=== PATIENT | female | born 1955 | race African-American/Black ===

== ENCOUNTER 2022-10-17 17:55 | Emergency (ER) | payer MEDICARE, OTHER, SELFPAY ==
[2022-10-17 18:00] VITALS: BP 111/69; PULSE 76; RESP 18; TEMP 36.7; O2SAT 98; BMI 22.8
--- NOTE | 2022-10-17 18:13 | EXP.UTC ---
Discharge Plan Disposition Patient Disposition: Home, Self-Care Condition: Good Prescriptions Prescriptions: New methylprednisolone [Medrol (Santosh)] 4 mg tablets,dose pack See Rx Instructions .Route .COMPLEX 6 Days Qty: 21 0RF Rx Instructions: taper pack; No Action potassium chloride 20 MEQ tablet extended release 20 meq PO BID 5 Days Qty: 10 0RF Referrals Follow up/Referrals: Provider,Referral, MD [Primary Care Provider] - See instructions Activity Restrictions/Add. Instructions Additional Instructions/Restrictions: Make sure to take your Potassium Start oral steriods tomorrow Oatmeal baths may help with itching and to dry your rash Over the counter Benadryl and Calamine lotion may help to dry the rash Clinical Impressions Clinical Impression: Poison alexia dermatitis Instructions Patient Instructions: Summertime Rashes: Poison Alexia, [place], and [place], DI for Poison Alexia Allergy Discharge ED Provider: Tana Lilly [facility] [place] General Stated complaint: poision alexia Mode of Arrival: Ambulatory Source of Information: Patient Limitations: No Limitations Time Seen by Provider: 10/17/22 18:13 Description of Symptoms (Recalled from Triage Doc. by RN): PATIENT C/O RASH SINCE YESTERDAY HEENT Symptoms (Recalled from RN notes): No Resp Symptoms (Recalled from RN notes): No Skin Symptoms (Recalled from RN notes): Yes MS Symptoms (Recalled from RN notes): No Functional Status (Recalled from RN notes): WNL History of Present Illness Provider Complaint: Patient states that she is highly allergic to poison alexia and she has been doing yard work and weed eating and must have got in it States that she noticed yesterday she was breaking out and itching all over and today it is worse States that it is all over her neck, chest, arms, shoulders and starting on her face so she came in to get checked Related Data Previous Rx's Medication Instructions Recorded potassium chloride 20 mEq 20 meq PO BID 5 days #10 tabs 01/30/19 tablet,extended release methylprednisolone 4 mg tablets in See Rx Instructions .Route 10/17/22 a dose pack (Medrol (Santosh)) .COMPLEX 6 days #21 tabs Allergies Allergy/AdvReac Type Severity Reaction Status Date / Time Penicillins Allergy Verified 01/30/19 11:45 Worker's Comp Is this a Worker's Comp case?: No [facility] Disclaimer: The information contained in this section may have been updated after the patient was seen, as this information can be updated by other users. Social History Smoking Status: Unknown if ever smoked second hand exposure: No alcohol intake: never current occupational status: other Travel in the last 8 weeks: None ROS Obtained: Yes All systems reviewed & no additional complaints except as documented and Yes Systems reviewed as appropriate & no additional complaints except as documented Constitutional Constitutional: Reports system reviewed and no additional complaints, except as documented and Reports as per HPI ENT Ears, Nose, Mouth, and Throat: Reports system reviewed and no additional complaints, except as documented and Reports as per HPI Cardiovascular Cardiovascular: Reports system reviewed and no additional complaints, except as documented and Reports as per HPI Respiratory Respiratory: Reports system reviewed and no additional complaints, except as documented and Reports as per HPI Gastrointestinal Gastrointestingal: Reports system reviewed and no additional complaints, except as documented and as per HPI Integumentary/Breasts Skin/Breast: Reports system reviewed and no additional complaints, except as documented, Reports as per HPI, Reports pruritus and Reports rash Physical Exam General General appearance: alert and in no apparent distress ENT ENT exam: Present mucous membranes moist Respiratory Respiratory exam: Present normal lung sounds bilaterally; Absent respiratory distress or wheezes Cardiovascular Cardiovascular exam: Present regu
[2022-10-17 18:29] VITALS: BP 111/69; PULSE 76; RESP 18; TEMP 36.7; O2SAT 98
== END 2022-10-17 18:35 | disposition home or self-care (01) ==
PROVIDERS: Emergency Provider Nurse Practitioner
DX: L23.7 Allergic contact dermatitis due to plants, except food (principal); W60.XXXA Contact with nonvenomous plant thorns and spines and sharp leaves, initial encounter
CPT/HCPCS: 96372; 99204; 99212; G0463